=== PATIENT | male | born 1985 | race Two or more races ===

== ENCOUNTER 2019-11-01 04:41 | Emergency (ER) | payer MEDICAID ==
[~2019-11-01] VITALS: Ht 154.9 cm; Wt 59.0 kg
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
--- NOTE | 2019-11-01 04:49 | NUR ---
SANITATION ENGINEER AT BEDSIDE
[2019-11-01 05:07] LABS: BASOPHILS % (AUTO) 0.4 % (0.0-2.0); EOSINOPHILS % (AUTO) 1.4 % (0.0-6.0); HEMATOCRIT 43 % (39-51); HEMOGLOBIN 14.1 g/dL (13.5-17.5); LYMPHOCYTES # (AUTO) 1.6 /CMM (0.8-4.8); LYMPHOCYTES % (AUTO) 21.8 % (20.0-44.0); MEAN CORPUSCULAR HGB CONC 33 g/dl (31.0-36.0); MEAN CORPUSCULAR VOLUME 77 fL (80-96); MONOCYTES # (AUTO) 0.3 /CMM (0.1-1.30); MONOCYTES % (AUTO) 3.7 % (2.0-12.0); NEUTROPHILS # (AUTO) 5.3 /CMM (1.8-8.9); NEUTROPHILS % (AUTO) 72.7 % (43.0-81.0); PLATELET COUNT (AUTO) 243 /CMM (150-450); RED BLOOD CELL COUNT(AUTO) 5.52 MIL/uL (4.5-6.0); WHITE BLOOD COUNT (AUTO) 7.4 K/uL (4.3-11.0)
--- NOTE | 2019-11-01 05:19 | NUR ---
PT STATED "I WANT TO KILL MYSELF" AND POINTED AT THE SIDE RAIL WHEN ASKED HOW. MD AWARE. AWAITING URINE SAMPLE.
[2019-11-01 05:23] LABS: ALANINE AMINOTRANSFERASE 70 U/L (12-78); ALBUMIN 4.3 g/dL (3.4-5.0); ALKALINE PHOSPHATASE 92 U/L (46-116); ASPARTATE AMINOTRANSFERASE 29 U/L (15-37); BILIRUBIN,DIRECT 0.1 mg/dL (0.0-0.2); BILIRUBIN,TOTAL 0.2 mg/dL (0.2-1.0); CALCIUM, SERUM 9.7 mg/dL (8.5-10.1); CARBON DIOXIDE 27 mmol/L (21-32); CHLORIDE 99 mmol/L (98-107); CREATININE 0.9 mg/dL (0.6-1.3); GLUCOSE 106 mg/dL (74-106); POTASSIUM 3.7 mmol/L (3.5-5.1); SODIUM SERUM 136 mmol/L (136-145); TOTAL PROTEIN, SERUM 8.7 g/dL (6.4-8.2); UREA NITROGEN, BLOOD 13 mg/dL (7-18)
[2019-11-01 05:29] LABS: SALICYLATE 0.7 mg/dL (2.8-20.0)
--- NOTE | 2019-11-01 05:32 | NUR ---
URINE SENT TO LAB
[2019-11-01 05:35] LABS: APPEARANCE,URINE Clear (CLEAR); BILIRUBIN,URINE Negative (NEGATIVE); BLOOD, URINE Negative Ery/uL (NEGATIVE); COLOR,URINE Yellow (YELLOW); KETONES,URINE Negative (NEGATIVE); LEUKOCYTE ESTERASE ,URINE Negative (NEGATIVE); NITRITE, URINE Negative (NEGATIVE); PH,URINE 5.5 (5.0-8.0); PROTEIN,URINE Negative (NEGATIVE); UGLUCOSE Negative (NEGATIVE); UROBILINOGEN,URINE 0.2 EU/dL (0.2)
[2019-11-01 06:10] LABS: ACETAMINOPHEN 0 ug/ml (10-30)
[2019-11-01 06:11] LABS: ALCOHOL, BLOOD < 3 mg/dL (0-0)
--- NOTE | 2019-11-01 06:36 | NUR ---
Patient is resting comfortably in bed. Easily aroused. VSS. Sitter at bedside.
--- NOTE | 2019-11-01 10:35 | NUR ---
CALLED [employer]IC[employer]
--- NOTE | 2019-11-01 13:16 | NUR ---
CALLED [employer] [employer], ETA 1 HR
[2019-11-01 14:56] VITALS: BP 111/69
--- NOTE | 2019-11-01 14:57 | NUR ---
Patient given written and verbal discharge instructions. Patient verbalizes understanding of instructions. Patient is ambulatory with steady gait. Refuses offer of [facility] placement. Patient given list of available shelters in surrounding area. Food provided.
== END 2019-11-01 14:56 | disposition home or self-care (01) ==
LOC: ER 04:44
DX: R45.851 Suicidal ideations (principal); Z91.89 Other specified personal risk factors, not elsewhere classified
CPT/HCPCS: 36415; 80048; 80076; 80305; 80307; 80329; 81001; 85025; 99285; G0480; 81000-TC